=== PATIENT | male | born 1980 | race Caucasian/White ===

== ENCOUNTER 2017-02-01 01:48 | Emergency (ER) | payer SELFPAY ==
[2017-02-01 01:50] VITALS: BMI 30.7
[2017-02-01 01:57] VITALS: RESP 18; TEMP 97.9; O2SAT 96
[2017-02-01 02:34] VITALS: BP 134/71; PULSE 76
--- NOTE | 2017-02-01 02:44 | ED PDOC ---
Arrival/HPI - General Chief Complaint: Chest Pain Time Seen by Provider: 02/01/17 02:00 Historian: Patient - History of Present Illness Narrative History of Present Illness (Text): 02/01/17 02:44 36 year old male, whose past medical history includes hypertension, diabetes, and hyperlipidemia, presents to the emergency department complaining of left sided chest pain associated with dizziness that began 30 minutes ago. Patient reports he was driving when the pain began and worsens with deep breaths. Patient reports a cough, but denies any substance abuse, drinking alcohol, pain radiating to the back and neck, and any history of GERD. 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 Patient admits to smoking and denies any current pain. PMD: Dr. Bender Time/Duration: 1/2 hour Symptom Course: Resolved Activities at Onset: Light Context: Other (Driving) Past Medical History - Provider Review Nursing Documentation Reviewed: Yes - Travel History Have you recently traveled outside [place] w/in the past 3 mons?: No - Past History Past History: No Previous - Infectious Disease Hx of Infectious Diseases: None - Tetanus Immunization Tetanus Immunization: Unknown - Endocrine/Metabolic Hx Diabetes Mellitus Type 2: Yes - Psychiatric Hx Depression: No Hx Emotional Abuse: No Hx Physical Abuse: No Hx Substance Use: No - Past Surgical History Past Surgical History: No Previous - Suicidal Assessment Feels Threatened In Home Enviroment: No Family/Social History - Physician Review Nursing Documentation Reviewed: Yes Family/Social History: Other (Cardiac history (Father)) Smoking Status: Heavy Smoker > 10 Cigarettes Daily Hx Alcohol Use: Yes Frequency of alcohol use: Socially Hx Substance Use: No Hx Substance Use Treatment: No Allergies/Home Meds Allergies/Adverse Reactions: Allergies No Known Allergies Allergy (Verified 03/01/12 00:58) Home Medications: Home Meds Medication Instructions Recorded Confirmed Unobtainable 02/01/17 02/01/17 Review of Systems - Physician Review All systems were reviewed & negative as marked: Yes - Review of Systems Respiratory: Cough. absent: SOB Cardiovascular: Chest Pain Musculoskeletal: absent: Back Pain, Neck Pain Neurological: Dizziness Physical Exam Vital Signs Reviewed: Yes Vital Signs Temp Pulse Pulse Resp BP BP Pulse Ox 02/01/17 02:25 76 134/71 02/01/17 01:53 97.9 F 75 18 134/74 96 Temperature: Afebrile Blood Pressure: Normal Pulse: Regular Respiratory Rate: Normal Appearance: Positive for: Well-Appearing, Non-Toxic, Comfortable Pain Distress: None Mental Status: Positive for: Alert and Oriented X 3 Finger Stick Blood Glucose: 272 - Systems Exam Head: Present: Atraumatic, Normocephalic Pupils: Present: PERRL Extroacular Muscles: Present: EOMI Conjunctiva: Present: Injected Mouth: Present: Moist Mucous Membranes Neck: Present: Normal Range of Motion Respiratory/Chest: Present: Clear to Auscultation, Good Air Exchange. No: Respiratory Distress, Accessory Muscle Use Cardiovascular: Present: Regular Rate and Rhythm, Normal S1, S2. No: Murmurs Abdomen: Present: Normal Bowel Sounds. No: Tenderness, Distention, Peritoneal Signs Back: Present: Normal Inspection Upper Extremity: Present: Normal Inspection. No: Cyanosis, Edema Lower Extremity: Present: Normal Inspection. No: Edema Neurological: Present: GCS=15, CN II-XII Intact, Speech Normal Skin: Present: Warm, Dry, Normal Color. No: Rashes Psychiatric: Present: Alert, Oriented x 3, Normal Insight, Normal Concentration Medical Decision Making ED Course and Treatment: 02/01/17 02:43 Impression: 26 year old male presents complaining of left sided chest pain associated with dizziness. Pt admits to smoking. Hx of hypertension, diabetes, and hyperlipidemia. Plan: -- Labs -- Chest 2 views x-ray -- Asprin -- Nitrostate SL Tab -- Reassess and disposition Progress Notes: All tests were cancelled, patient decided to leave against medical advice. Leaving Against Medical Advice (AMA): The patient is choosing to leave against medical advice. I have personally explained to the patient that choosing to do so may result in permanent bodily harm or . I have discussed at great length that without further evaluation and monitoring there may be unforeseen circumstances and/or deterioration causing permanent bodily harm or as a result of their choice. The patient is alert, oriented, and shows the mental capacity to make clear decisions regarding the patients health care at this time. The patient continues to wish to leave against medical advice. In light of the patients decision to leave against medical advice. The patient is aware of the importance to following up as instructed. The patient has been advised that they should return to the emergency room immediately if they change their mind at any time, or if their condition begins to change or worsen in any way. - Medication Orders Current Medication Orders: Discontinued Medications Aspirin (Aspirin Chewable) 324 mg PO STAT STA Stop: 02/01/17 02:23 - Scribe Statement The provider has reviewed the documentation as recorded by the Rishabh Bragg Provider Scribe Attestation: All medical record entries made by the Scribe were at my direction and personally dictated by me. I have reviewed the chart and agree that the record accurately reflects my personal performance of the history, physical exam, medical decision making, and the department course for this patient. I have also personally directed, reviewed, and agree with the discharge instructions and disposition. Disposition/Present on Arrival - Present on Arrival Any Indicators Present on Arrival: Yes History of DVT/PE: No History of Uncontrolled Diabetes: Yes Urinary Catheter: No History of Decub. 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 if your chest pain worsens or recurs, please go to the nearest ER, do not exert yourself. Referrals: Teto Bender MD [Primary Care Provider] - Follow up with primary Jaswinder Diaz MD [Staff Provider] - Follow up with primary Forms: [employer] (Urdu)
--- NOTE | 2017-02-01 23:19 | CARD ---
APPROVED REPORT EKG Measurement Heart [id number] <Conclusion> Normal sinus rhythm with sinus arrhythmia Minimal voltage criteria for LVH, may be normal variant Borderline ECG
== END 2017-02-01 03:22 | disposition left against medical advice (07) ==
LOC: ED 01:48
DX: R07.9 Chest pain, unspecified (principal); I10 Essential (primary) hypertension; E11.9 Type 2 diabetes mellitus without complications; F17.210 Nicotine dependence, cigarettes, uncomplicated